=== PATIENT | female | born 1950 | race Caucasian/White ===

== ENCOUNTER 2017-09-21 18:26 | Emergency (ER) | payer MEDICARE ==
[2017-09-21] MEDS ORDERED: Labetalol 20 MG/4 ML Syringe IVPUSH ONE (19:01)
--- NOTE | 2017-09-21 19:03 | EDM.PDOC ---
ED HPI GENERAL MEDICAL PROBLEM - General Chief Complaint: ENT Problem Stated Complaint: PT HAS BLEEDING NOSE Time Seen by Provider: 09/21/17 19:02 Source of Information: Reports: Patient - History of Present Illness INITIAL COMMENTS - FREE TEXT/NARRATIVE: HISTORY AND PHYSICAL: History of present illness: [Patient presents with epistaxis MR blood pressure is noted be elevated 200/120 this was corrected with labetalol she does have a history of hypertension on metoprolol and hydrochlorothiazide No fever nausea vomiting chills sweats no chest pain shortness breath headache dizziness palpitation no bowel or urine symptoEpistaxis right naris stated with control of blood pressure nosebleeding did improve however patient was somewhat in a panic I'm not certain if the blood pressure came before the epistaxis over the epistaxis came before the blood pressure. ] Review of systems: As per history of present illness and below otherwise all systems reviewed and negative. Past medical history: As per history of present illness and as reviewed below otherwise noncontributory. Surgical history: As per history of present illness and as reviewed below otherwise noncontributory. Social history: No reported history of drug or alcohol abuse. Family history: As per history of present illness and as reviewed below otherwise noncontributory. Physical exam: HEENT: Atraumatic, normocephalic, pupils reactive, negative for conjunctival pallor or scleral icterus, mucous membranes moist, throat clear, neck supple, nontender, trachea midline. right near bleeding anteriorly there is not seem to be anything for cauterization appears to be a posterior bleed bleeding has ceased with application of the balloon device no posterior bleeding at current Lungs: Clear to auscultation, breath sounds equal bilaterally, chest nontender. Heart: S1S2, regular, negative for clicks, rubs, or JVD. Abdomen: Soft, nondistended, nontender. Negative for masses or hepatosplenomegaly. Negative for costovertebral tenderness. Pelvis: Stable nontender. Genitourinary: Deferred. Rectal: Deferred. Extremities: Atraumatic, negative for cords or calf pain. Neurovascular unremarkable. Neuro: Awake, alert, oriented. Cranial nerves II through XII unremarkable. Cerebellum unremarkable. Motor and sensory unremarkable throughout. Exam nonfocal. Diagnostics: [CBC CMP UA ] Therapeutics: labetalol 10 mg IV Insertion of a balloon device 5 mL of pressure return in 48 hours for removal sooner as needed Follow-up with ENT if symptoms persist or worsen ] Impression: [Hypertensive emergency Epistaxis] Definitive disposition and diagnosis as appropriate pending reevaluation and review of above. - Related Data Allergies Allergy/AdvReac Type Severity Reaction Status Date / Time No Known Allergies Allergy Verified 09/21/17 18:40 Home Meds: Home Meds Hydrochlorothiazide 25 mg PO DAILY 09/21/17 [History] Metoprolol Succinate [Toprol XL 50mg] 50 mg PO DAILY 09/21/17 [History] Past Medical History Cardiovascular History: Reports: Hypertension Social & Family History - Family History Family Medical History: Noncontributory - Tobacco Use Smoking Status *Q: Never Smoker - Recreational Drug Use Recreational Drug Use: No ED ROS GENERAL - Review of Systems Review Of Systems: ROS reveals no pertinent complaints other than HPI. ED EXAM, GENERAL - Physical Exam Exam: See Below Course - Vital Signs Last Recorded V/S: Last Vital Signs Temp 98.3 F 09/21/17 18:38 Pulse 80 09/21/17 19:30 Resp 18 09/21/17 19:30 BP 127/85 09/21/17 19:30 Pulse Ox 98 09/21/17 19:30 - Orders/Labs/Meds Orders: Active Orders 24 hr Category Date Time Status UA W/MICROSCOPIC [URIN] Stat Lab 09/21/17 19:01 Ordered Lactated Ringers [Ringers, Lactated] 1,000 ml Med 09/21/17 19:15 Active IV ASDIRECTED Medication Orders Lactated Ringer's (Ringers, Lactated) 1,000 mls @ 999 mls/hr IV ASDIRECTED JONA Last Infusion: 09/21/17 19:32 Dose: 50 mls/hr Admin: 09/21/17 19:30 Dose: 999 mls/hr Labs: Laboratory Tests 09/21/17 09/21/17 09/21/17 Range/Units 19:10 19:10 19:10 WBC 8.08 (4.0-11.0) K/uL RBC 4.97 (4.30-5.90) M/uL Hgb 15.5 (12.0-16.0) g/dL Hct 41.7 (36.0-46.0) % MCV 83.9 (80.0-98.0) fL MCH 31.2 (27.0-32.0) pg MCHC 37.2 H (31.0-37.0) g/dL RDW Std Deviation 44.9 (28.0-62.0) fl RDW Coeff of Samra 15 (11.0-15.0) % Plt Count 320 (150-400) K/uL MPV 10.20 (7.40-12.00) fL Neut % (Auto) 38.9 L (48.0-80.0) % Lymph % (Auto) 50.6 H (16.0-40.0) % [place] % (Auto) 6.4 (0.0-15.0) % Eos % (Auto) 3.5 (0.0-7.0) % Baso % (Auto) 0.6 (0.0-1.5) % Neut # (Auto) 3.1 (1.4-5.7) K/uL Lymph # (Auto) 4.1 H (0.6-2.4) K/uL [place] # (Auto) 0.5 (0.0-0.8) K/uL Eos # (Auto) 0.3 (0.0-0.7) K/uL Baso # (Auto) 0.1 (0.0-0.1) K/uL Nucleated RBC % 0.0 /100WBC Nucleated RBCs # 0 K/uL INR 0.95 Sodium 138 (136-145) mmol/L Potassium 3.8 (3.5-5.1) mmol/L Chloride 101 (98-107) mmol/L Carbon Dioxide 25.9 (21.0-32.0) mmol/L BUN 25 H (7.0-18.0) mg/dL Creatinine 0.7 (0.6-1.0) mg/dL Est Cr Clr Drug Dosing 65.40 mL/min Estimated GFR (MDRD) > 60.0 ml/min Glucose 107 H (74-106) mg/dL Calcium 10.5 H (8.5-10.1) mg/dL Total Bilirubin 1.4 H (0.2-1.0) mg/dL AST 28 (15-37) IU/L ALT 23 (14-63) IU/L Alkaline Phosphatase 76 (46-116) U/L Total Protein 7.3 (6.4-8.2) g/dL Albumin 3.9 (3.4-5.0) g/dL Globulin 3.4 (2.0-3.5) g/dL Albumin/Globulin Ratio 1.1 L (1.3-2.8) Meds: Medications Generic Name Dose Route Start Last Admin Trade Name Freq PRN Reason Stop Dose Admin Lactated Ringer's 1,000 mls @ 999 mls/hr 09/21/17 19:15 09/21/17 19:32 Ringers, Lactated IV 50 mls/hr ASDIRECTED JONA Infusion Discontinued Medications Generic Name Dose Route Start Last Admin Trade Name Freq PRN Reason Stop Dose Admin Labetalol HCl 20 mg 09/21/17 19:01 09/21/17 19:21 Normodyne IVPUSH 09/21/17 19:02 Not Given NOW ONE Protocol Labetalol HCl Confirm 09/21/17 19:14 09/21/17 19:18 Normodyne Administered 09/21/17 19:15 10 mg Dose Administration 100 mg .ROUTE .STK-MED ONE Departure - Departure Time of Disposition: 20:43 Disposition: Home, Self-Care 01 Condition: Good Clinical Impression: Epistaxis - Discharge Information Forms: ED Department Discharge Additional Instructions: Return if symptoms persist or worsen Return to ER in 48 hours for removal, if it becomes uncomfortable or rebleeds return to emergency room as needed If no bleeding nosebleeds continue to be a problem feet please follow-up with ENT specialist at number provided below [facility] - ENT [address] [place] [id number] [facility] - Primary Care [address] [place] [id number] Follow-up with primary care for continued management of your blood pressure The following information is given to patients seen in the emergency department who are being discharged to home. This information is to outline your options for follow-up care. We provide all patients seen in our emergency department with a follow-up referral. The need for follow-up, as well as the timing and circumstances, are variable depending upon the specifics of your emergency department visit. If you don't have a primary care physician on staff, we will provide you with a referral. We always advise you to contact your personal physician following an emergency department visit to inform them of the circumstance of the visit and for follow-up with them and/or the need for any referrals to a consulting specialist. The emergency department will also refer you to a specialist when appropriate. This referral assures that you have the opportunity for follow-up care with a specialist. All of these measure are taken in an effort to provide you with optimal care, which includes your follow-up. Under all circumstances we always encourage you to contact your private physician who remains a resource for coordinating your care. When calling for follow-up care, please make the office aware that this follow-up is from your recent emergency room visit. If for any reason you are refused follow-up, please contact the [facility] emergency department at and asked to speak to the emergency department charge nurse. - My Orders Last 24 Hours: My Active Orders 09/21/17 19:01 UA W/MICROSCOPIC [URIN] Stat 09/21/17 19:15 Lactated Ringers [Ringers, Lactated] 1,000 ml IV ASDIRECTED - Assessment/Plan Last 24 Hours: My Active Orders 09/21/17 19:01 UA W/MICROSCOPIC [URIN] Stat 09/21/17 19:15 Lactated Ringers [Ringers, Lactated] 1,000 ml IV ASDIRECTED
[2017-09-21] MEDS ORDERED: Labetalol 100 MG/20 ML MDV ONE (19:14)
[2017-09-21] MEDS ORDERED: Lactated Ringers 1,000 ML IV SCH (19:15)
[2017-09-21 20:06] LABS: CHLORIDE,CL 101 mmol/L (98-107); SODIUM,NA 138 mmol/L (136-145)
== END 2017-09-21 20:55 | disposition home or self-care (01) ==
LOC: MW.ED 18:26
DX: I10 Essential (primary) hypertension (principal); R04.0 Epistaxis; Z79.899 Other long term (current) drug therapy
CPT/HCPCS: 30903; 36415; 80053; 81001; 85025; 85610; 96360; 99283; J7120

== ENCOUNTER 2017-09-23 13:26 | Emergency (ER) | payer MEDICARE, OTHER ==
--- NOTE | 2017-09-23 13:57 | EDM.PDOC ---
ED HPI GENERAL MEDICAL PROBLEM - General Chief Complaint: ENT Problem Stated Complaint: PT IS HERE TO REMOVE NOSE TUBE Time Seen by Provider: 09/23/17 13:54 Source of Information: Reports: Patient - History of Present Illness INITIAL COMMENTS - FREE TEXT/NARRATIVE: HISTORY AND PHYSICAL: History of present illness: [Patient was in with epistaxis 2 days prior and a rapid Rhino was placed in the right nares this was removed without rebleed however was able to visualize a couple of anterior lesions for cautery I did so with silver nitrate no further bleeding No fever nausea vomiting chills sweats ] Review of systems: As per history of present illness and below otherwise all systems reviewed and negative. Past medical history: As per history of present illness and as reviewed below otherwise noncontributory. Surgical history: As per history of present illness and as reviewed below otherwise noncontributory. Social history: No reported history of drug or alcohol abuse. Family history: As per history of present illness and as reviewed below otherwise noncontributory. Physical exam: HEENT: Atraumatic, normocephalic, pupils reactive, negative for conjunctival pallor or scleral icterus, mucous membranes moist, throat clear, neck supple, nontender, trachea midline.Right nares there were 2 small areas anteriorly but had some superficial bleeding these were easily cauterized with silver nitrate no further bleeding no blood in oropharynx symptoms appear to be resolved left near his patent and asymptomatic normal exam Lungs: Clear to auscultation, breath sounds equal bilaterally, chest nontender. Heart: S1S2, regular, negative for clicks, rubs, or JVD. Abdomen: Soft, nondistended, nontender. Negative for masses or hepatosplenomegaly. Negative for costovertebral tenderness. Pelvis: Stable nontender. Genitourinary: Deferred. Rectal: Deferred. Extremities: Atraumatic, negative for cords or calf pain. Neurovascular unremarkable. Neuro: Awake, alert, oriented. Cranial nerves II through XII unremarkable. Cerebellum unremarkable. Motor and sensory unremarkable throughout. Exam nonfocal. Diagnostics: [ clinical ] Therapeutics: [ removal of Rhino Rocket silver nitrate for cautery ] Impression: [ epistaxis resolved ] Definitive disposition and diagnosis as appropriate pending reevaluation and review of above. - Related Data Allergies Allergy/AdvReac Type Severity Reaction Status Date / Time No Known Allergies Allergy Verified 09/21/17 18:40 Home Meds: Home Meds Hydrochlorothiazide 25 mg PO DAILY 09/21/17 [History] Metoprolol Succinate [Toprol XL 50mg] 50 mg PO DAILY 09/21/17 [History] Past Medical History - Past Health History Medical/Surgical History: Denies Medical/Surgical History Cardiovascular History: Reports: Hypertension - Infectious Disease History Infectious Disease History: Reports: None Social & Family History - Family History Family Medical History: Noncontributory - Tobacco Use Smoking Status *Q: Never Smoker - Recreational Drug Use Recreational Drug Use: No ED ROS GENERAL - Review of Systems Review Of Systems: ROS reveals no pertinent complaints other than HPI. ED EXAM, GENERAL - Physical Exam Exam: See Below Course - Vital Signs Last Recorded V/S: Last Vital Signs Temp 97.7 F 09/23/17 13:45 Pulse 94 09/23/17 13:45 Resp 18 09/23/17 13:45 BP 156/92 H 09/23/17 13:45 Pulse Ox 97 09/23/17 13:45 Departure - Departure Time of Disposition: 13:56 Disposition: Home, Self-Care 01 Condition: Good Clinical Impression: Epistaxis - Discharge Information Referrals: PCP,None [Primary Care Provider] - Additional Instructions: The following information is given to patients seen in the emergency department who are being discharged to home. This information is to outline your options for follow-up care. We provide all patients seen in our emergency department with a follow-up referral. The need for follow-up, as well as the timing and circumstances, are variable depending upon the specifics of your emergency department visit. If you don't have a primary care physician on staff, we will provide you with a referral. We always advise you to contact your personal physician following an emergency department visit to inform them of the circumstance of the visit and for follow-up with them and/or the need for any referrals to a consulting specialist. The emergency department will also refer you to a specialist when appropriate. This referral assures that you have the opportunity for follow-up care with a specialist. All of these measure are taken in an effort to provide you with optimal care, which includes your follow-up. Under all circumstances we always encourage you to contact your private physician who remains a resource for coordinating your care. When calling for follow-up care, please make the office aware that this follow-up is from your recent emergency room visit. If for any reason you are refused follow-up, please contact the [facility] emergency department at and asked to speak to the emergency department charge nurse.
== END 2017-09-23 14:07 | disposition home or self-care (01) ==
LOC: MW.ED 13:26
DX: R04.0 Epistaxis (principal); I10 Essential (primary) hypertension; Z79.899 Other long term (current) drug therapy
CPT/HCPCS: 30901; 99282; 99283

== ENCOUNTER 2021-12-12 16:29 | Emergency (ER) | payer MEDICARE, OTHER ==
[2021-12-12] MEDS ORDERED: Labetalol 100 MG/20 ML MDV IVPUSH ONE ×2 (16:45→18:10)
[2021-12-12 18:35] LABS: BLOOD UREA NITROGEN,BUN 20 mg/dL (7.0-18.0); CARBON DIOXIDE,CO2 23.9 mmol/L (21.0-32.0); CHLORIDE,CL 106 mmol/L (98-107); ESTIMATED GFR 79 mL/min (>60); GLUCOSE RANDOM 96 mg/dL (74-106); POTASSIUM,K 4.1 mmol/L (3.5-5.1); SODIUM,NA 141 mmol/L (136-145)
[2021-12-12] MEDS ORDERED: Aspirin 325 MG Tab PO ONE (18:35)
== END 2021-12-12 19:42 ==
LOC: MW.ED 16:29
DX: R41.3 Other amnesia (principal); I10 Essential (primary) hypertension; Z20.822 Contact with and (suspected) exposure to COVID-19
CPT/HCPCS: 36415; 70450; 80053; 80305; 80307; 81001; 83735; 84443; 84484; 85025; 85610; 85730; 93005; 96374; 99285; A9270; J3490; U0002